=== PATIENT | male | born 2000 | race Caucasian/White ===

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

== ENCOUNTER 2021-10-23 12:11 | Emergency (ER) | payer MEDICAID, OTHER ==
[~2021-10-23] VITALS: Ht 165.1 cm; Wt 72.7 kg
[2021-10-23] MEDS ORDERED: IBUPROFEN 600 MG TABLET PO ONE (13:30)
[2021-10-23 14:01] VITALS: BP 126/68
== END 2021-10-23 14:58 | disposition home or self-care (01) ==
LOC: EMS 12:11
DX: S83.91XA Sprain of unspecified site of right knee, initial encounter (principal); S80.01XA Contusion of right knee, initial encounter; X50.0XXA Overexertion from strenuous movement or load, initial encounter; Y93.89 Activity, other specified; Y92.89 Other specified places as the place of occurrence of the external cause; Y99.8 Other external cause status
CPT/HCPCS: 99283

== ENCOUNTER 2022-09-10 21:55 | Emergency (ER) | payer MEDICAID, OTHER ==
[~2022-09-10] VITALS: Ht 165.1 cm; Wt 72.7 kg
[2022-09-10 22:17] LABS: BASOPHILS % (AUTO) 0.3 % (0.0-2.0); EOSINOPHILS % (AUTO) 1.6 % (1.0-6.0); HEMATOCRIT 47.5 % (41-53); HEMOGLOBIN 15.8 g/dL (13.5-17.5); LYMPHOCYTES # (AUTO) 2.1 K/uL (1.0-4.8); LYMPHOCYTES % (AUTO) 31.2 % (22.0-44.0); MEAN CORPUSCULAR HGB CONC 33.3 G/dL (31.0-37.0); MEAN CORPUSCULAR VOLUME 87 fL (80-100); MONOCYTES # (AUTO) 0.6 K/uL (0.1-1.0); MONOCYTES % (AUTO) 8.7 % (2.0-9.0); NEUTROPHILS % (AUTO) 58.2 % (40.0-70.0); PLATELET COUNT (AUTO) 324 K/uL (150-450); RED BLOOD CELL COUNT(AUTO) 5.45 MIL/uL (4.50-5.90)
[2022-09-10 22:27] LABS: ANION GAP 6 mmol/L (8-16); CARBON DIOXIDE 30 mmol/L (22-29); CHLORIDE 103 mmol/L (98-107); CREATININE 0.96 mg/dL (0.60-1.30); GLUCOSE,RANDOM 89 mg/dL (70-110); POTASSIUM 4.2 mmol/L (3.5-5.1); SODIUM SERUM 139 mmol/L (136-145); UREA NITROGEN, BLOOD 17 mg/dL (7-18)
[2022-09-10 22:28] LABS: GLOMERULAR FILTR. RATE CALC > 60 mL/min (>60)
[2022-09-10] MEDS ORDERED: ACETAMINOPHEN 500 MG TABLET PO ONE (22:30)
[2022-09-10 22:34] LABS: ALANINE AMINOTRANSFERASE 81 U/L (12-78); ALBUMIN 4.1 g/dL (3.4-5.0); ALKALINE PHOSPHATASE 91 U/L (46-116); ASPARTATE AMINOTRANSFERASE 27 U/L (15-37); BILIRUBIN,TOTAL 0.3 mg/dL (0.1-1.0); CREATINE KINASE, TOTAL ONLY 121 U/L (39-308); TOTAL PROTEIN, SERUM 7.8 g/dL (6.4-8.2)
[2022-09-10 22:37] LABS: B-TYPE NATRIURETIC PEPTIDE 13 pg/mL (0-100)
[2022-09-10 23:20] VITALS: BP 128/76
== END 2022-09-11 00:58 | disposition home or self-care (01) ==
LOC: EMS 21:56
DX: R07.9 Chest pain, unspecified (principal); J45.909 Unspecified asthma, uncomplicated; F12.90 Cannabis use, unspecified, uncomplicated; Z86.79 Personal history of other diseases of the circulatory system
CPT/HCPCS: 99285; 70450; 71045; 80053; 82550; 83880; 84484; 85025; 85379; 36415; 93005; G0480

== ENCOUNTER 2023-05-05 18:45 | Emergency (ER) | payer OTHER ==
[~2023-05-05] VITALS: Ht 165.1 cm; Wt 72.7 kg
[2023-05-05 21:00] LABS: BASOPHILS % (AUTO) 0.2 % (0.0-2.0); EOSINOPHILS % (AUTO) 0.5 % (1.0-6.0); HEMATOCRIT 43.5 % (41-53); HEMOGLOBIN 14.4 g/dL (13.5-17.5); LYMPHOCYTES # (AUTO) 1.2 K/uL (1.0-4.8); LYMPHOCYTES % (AUTO) 19.8 % (22.0-44.0); MEAN CORPUSCULAR HEMOGLOBIN 28.8 pg (26.0-34.0); MEAN CORPUSCULAR VOLUME 87 fL (80-100); MONOCYTES # (AUTO) 0.5 K/uL (0.1-1.0); MONOCYTES % (AUTO) 8.7 % (2.0-9.0); NEUTROPHILS # (AUTO) 4.5 K/uL (1.8-7.7); NEUTROPHILS % (AUTO) 70.8 % (40.0-70.0); PLATELET COUNT (AUTO) 302 K/uL (150-450); RED BLOOD CELL COUNT(AUTO) 4.98 MIL/uL (4.50-5.90); RED CELL DISTRIBUTION WIDTH 13.3 % (11.5-14.5)
[2023-05-05 21:04] LABS: ANION GAP 7 mmol/L (8-16); CALCIUM, TOTAL 8.9 mg/dL (8.8-10.5); CARBON DIOXIDE 27 mmol/L (22-29); CHLORIDE 101 mmol/L (98-107); CREATININE 0.71 mg/dL (0.60-1.30); GLOMERULAR FILTR. RATE CALC > 60 mL/min (>60); GLUCOSE,RANDOM 87 mg/dL (70-110); POTASSIUM 3.7 mmol/L (3.5-5.1); SODIUM SERUM 135 mmol/L (136-145)
[2023-05-05 21:12] LABS: ALANINE AMINOTRANSFERASE 26 U/L (12-78); ALBUMIN 4.2 g/dL (3.4-5.0); ALKALINE PHOSPHATASE 87 U/L (46-116); ASPARTATE AMINOTRANSFERASE 19 U/L (15-37); BILIRUBIN,TOTAL 0.5 mg/dL (0.1-1.0); LIPASE 57 U/L (73-393); TOTAL PROTEIN, SERUM 7.7 g/dL (6.4-8.2)
[2023-05-05 21:30] LABS: APPEARANCE,URINE CLEAR (CLEAR); BILIRUBIN,URINE NEGATIVE (NEGATIVE); GLUCOSE, URINE (UA) NEGATIVE (NEGATIVE); KETONES,URINE 80-100 mg/dL (NEGATIVE); LEUKOCYTE ESTERASE ,URINE NEGATIVE (NEGATIVE); NITRATE,URINE NEGATIVE (NEGATIVE); OCCULT BLOOD,URINE NEGATIVE (NEGATIVE); PROTEIN,URINE NEGATIVE (NEGATIVE); SPECIFIC GRAVITIY, URINE 1.018 (1.003-1.030); UROBILINOGEN,URINE <=1.0 mg/dL (<=1.0)
[2023-05-05 21:53] VITALS: BP 122/60
[2023-05-05] MEDS ORDERED: FAMOTIDINE 20 MG TABLET PO ONE (22:45)
== END 2023-05-05 22:57 | disposition home or self-care (01) ==
LOC: EMS 18:46
DX: R10.12 Left upper quadrant pain (principal); K29.70 Gastritis, unspecified, without bleeding; J45.909 Unspecified asthma, uncomplicated; F12.90 Cannabis use, unspecified, uncomplicated
CPT/HCPCS: 80053; 81003; 83690; 85025; 99283

== ENCOUNTER 2023-05-31 12:26 | Emergency (ER) | payer OTHER ==
[~2023-05-31] VITALS: Ht 167.6 cm; Wt 72.7 kg
[2023-05-31 12:35] VITALS: TEMP 98.1
[2023-05-31] MEDS ORDERED: SODIUM CHLORIDE 0.9% 1,000 ML IV ONE (12:45)
[2023-05-31 14:06] LABS: BASOPHILS % (AUTO) 0.1 % (0.0-2.0); EOSINOPHILS % (AUTO) 0.4 % (1.0-6.0); HEMATOCRIT 46.7 % (41-53); HEMOGLOBIN 15.3 g/dL (13.5-17.5); LYMPHOCYTES # (AUTO) 1.6 K/uL (1.0-4.8); LYMPHOCYTES % (AUTO) 27.4 % (22.0-44.0); MEAN CORPUSCULAR HEMOGLOBIN 28.5 pg (26.0-34.0); MEAN CORPUSCULAR HGB CONC 32.7 G/dL (31.0-37.0); MEAN CORPUSCULAR VOLUME 87 fL (80-100); MONOCYTES # (AUTO) 0.5 K/uL (0.1-1.0); MONOCYTES % (AUTO) 7.9 % (2.0-9.0); NEUTROPHILS # (AUTO) 3.8 K/uL (1.8-7.7); NEUTROPHILS % (AUTO) 64.2 % (40.0-70.0); PLATELET COUNT (AUTO) 366 K/uL (150-450); RED BLOOD CELL COUNT(AUTO) 5.35 MIL/uL (4.50-5.90); RED CELL DISTRIBUTION WIDTH 13.3 % (11.5-14.5)
[2023-05-31] MEDS ORDERED: CLINDAMYCIN HCL 150 MG CAPSULE PO ONE (14:15)
[2023-05-31] MEDS ORDERED: POLY17PO PO (14:27)
[2023-05-31 14:41] VITALS: BP 113/74; PULSE 81; RESP 18
[2023-05-31 14:41] LABS: ANION GAP 11 mmol/L (8-16); CALCIUM, TOTAL 9.3 mg/dL (8.8-10.5); CARBON DIOXIDE 25 mmol/L (22-29); CHLORIDE 102 mmol/L (98-107); CREATININE 0.78 mg/dL (0.60-1.30); GLOMERULAR FILTR. RATE CALC > 60 mL/min (>60); GLUCOSE,RANDOM 97 mg/dL (70-110); POTASSIUM 3.5 mmol/L (3.5-5.1); SODIUM SERUM 138 mmol/L (136-145)
[2023-05-31 14:46] LABS: ALANINE AMINOTRANSFERASE 28 U/L (12-78); ALBUMIN 4.4 g/dL (3.4-5.0); ALKALINE PHOSPHATASE 89 U/L (46-116); ASPARTATE AMINOTRANSFERASE 18 U/L (15-37); BILIRUBIN,TOTAL 0.5 mg/dL (0.1-1.0); LIPASE 75 U/L (73-393)
== END 2023-05-31 14:44 | disposition home or self-care (01) ==
LOC: EMS 12:31
DX: R10.32 Left lower quadrant pain (principal); K59.00 Constipation, unspecified; J45.909 Unspecified asthma, uncomplicated; F12.90 Cannabis use, unspecified, uncomplicated
CPT/HCPCS: 74022; 80053; 83690; 85025; 93005; 96360; 99285

== ENCOUNTER 2023-11-09 18:12 | Emergency (ER) | payer OTHER ==
[~2023-11-09] VITALS: Ht 165.1 cm; Wt 75.0 kg
[~2023-11-09 18:12] MED LIST changes: -NOCURR; +POLY17PO PO
[2023-11-09 18:14] VITALS: TEMP 98
[2023-11-09] MEDS ORDERED: BACLOFEN 10 MG TABLET PO ONE (19:45)
[2023-11-09] MEDS ORDERED: IBUPROFEN 600 MG TABLET PO ONE (19:45)
[2023-11-09] MEDS ORDERED: LIDOCAINE 5% TRANSDERMAL PATCH TD ONE (19:45)
[2023-11-09] MEDS ORDERED: BACL10TA PO (20:40)
[2023-11-09] MEDS ORDERED: LIDO700A15 TP (20:41)
[2023-11-09 21:00] VITALS: BP 119/85; PULSE 98; RESP 17
== END 2023-11-09 21:56 | disposition home or self-care (01) ==
LOC: EMS 18:13
DX: M54.50 Low back pain, unspecified (principal); J45.909 Unspecified asthma, uncomplicated; F12.90 Cannabis use, unspecified, uncomplicated
CPT/HCPCS: 72100; 72220; 99284; Z7502; Z7610

== ENCOUNTER 2024-02-02 11:16 | Emergency (ER) | payer OTHER ==
[~2024-02-02] VITALS: Ht 162.6 cm; Wt 77.0 kg
[~2024-02-02 11:16] MED LIST changes: +BACL10TA PO; +LIDO700A15 TP; -POLY17PO PO
[2024-02-02 11:21] VITALS: TEMP 97
[2024-02-02] MEDS: IBUPROFEN 600 MG TABLET PO ONE (14:25)
[2024-02-02 14:30] VITALS: BP 145/85; PULSE 85; RESP 16
[2024-02-02] MEDS: ACETAMINOPHEN 500 MG TABLET PO ONE (14:40)
== END 2024-02-02 14:50 | disposition home or self-care (01) ==
LOC: EMS 11:16
DX: N50.812 Left testicular pain (principal); J45.909 Unspecified asthma, uncomplicated; F12.90 Cannabis use, unspecified, uncomplicated
CPT/HCPCS: 76870; 99284; Z7502; Z7610